=== PATIENT | male | born 1995 | race Caucasian/White ===

== ENCOUNTER 2016-07-18 06:16 | Emergency (ER) | payer BC, OTHER ==
[~2016-07-18] VITALS: Ht 180.3 cm; Wt 140.6 kg
== END 2016-07-18 09:30 | disposition short-term general hospital (02) ==
LOC: ER 06:16
DX: M54.2 Cervicalgia (principal); V59.9XXA Occupant (driver) (passenger) of pick-up truck or van injured in unspecified traffic accident, initial encounter; Y92.410 Unspecified street and highway as the place of occurrence of the external cause